=== PATIENT | female | born 1995 | race Caucasian/White ===

== ENCOUNTER 2018-06-21 10:17 | Emergency (ER) | payer OTHER ==
--- NOTE | 2018-06-21 10:23 | EDPHY ---
H & P Time Seen by Provider: 06/21/18 10:20 - Medical/Surgical History Hx Asthma: No Hx Chronic Respiratory Disease: No Hx Diabetes: No Hx Cardiac Disease: No Hx Renal Disease: No Hx Cirrhosis: No Hx Alcoholism: No Hx HIV/AIDS: No Hx Splenectomy or Spleen Trauma: No Other PMH: 2 abortions - Social History Smoking Status: Current some day smoker Constitutional: Initial Vital Signs Temperature (C) 36.6 C 06/21/18 10:20 Heart Rate 75 06/21/18 10:20 Respiratory Rate 16 06/21/18 10:20 Blood Pressure 123/89 H 06/21/18 10:20 O2 Sat (%) 96 06/21/18 10:20 O2 Delivery Mode Room Air Allergies/Adverse Reactions: No Known Allergies Allergy (Verified 06/21/18 10:20) Home Medications: Medication Instructions Recorded Hydrocodone/APAP 5/325 [[place] 1 - 2 each PO Q4-6PRN PRN #20 tab 06/21/18 5/325] Ibuprofen [Motrin] 800 mg PO Q8 #20 tab 06/21/18 Medical Decision Making - Diagnostics Imaging Results: Imaging Impressions Ankle X-Ray 06/21/18 10:24 Impression: Mild soft tissue swelling over the lateral malleolus indicating the soft tissue injury. No evidence for fracture. Imaging: I viewed and interpreted images myself ED Course/Re-evaluation: CHIEF COMPLAINT: Right ankle injury HISTORY OF PRESENT ILLNESS: The patient is a 22 y/o female complaining of right ankle pain after rolling it yesterday. Her symptoms have no improved, so she decided to present to the emergency department. No fever, headache, body aches, lightheadedness, chest pain, heart palpitations, shortness of breath, cough, abdominal pain, urinary or bowel complaints, numbness, paresthesias. REVIEW OF SYSTEMS: A 10 point review of systems was performed and is negative with the exception of the elements mentioned in the history of present illness. PHYSICAL EXAM: HR, BP, O2 Sat, RR. Temp noted General Appearance: Alert, well hydrated, appropriate, and non-toxic appearing. Head: Atraumatic without scalp tenderness or obvious injury Eyes: Pupils equal, round, reactive to light and accommodation, EOMI, no trauma , no injection. Ears: Clear bilaterally, no perforation, normal landmarks Nose: Atraumatic, no rhinorrhea, clear. Throat: There is no erythema or exudates, no lesions, normal tonsils, mucus membranes moist. Neck: Supple, 2+ carotid upstroke, nontender, no lymphadenopathy. Respiratory: No retractions, no distress, no wheezes, and no accessory muscle use. Lungs are clear to auscultation bilaterally. Cardiovascular: Regular rate and rhythm, no murmurs, rubs, or gallops. Bilateral carotid, radial, dorsalis pedis, and posterior tibial pulses intact. Good capillary refill all extremities. Gastrointestinal: Abdomen is soft, nontender, non-distended, no masses, no rebound, no guarding, no peritoneal signs. Musculoskeletal: Swelling, ecchymosis, and tenderness to the lateral aspect of her foot and at the base of her 5th metacarpal; ankle appears normal. Otherwise normal active ROM of all extremities, atraumatic. Neurological: Alert, appropriate, and interactive. The patient has normal DTRs and non-focal cranial nerves, motor, sensory, and cerebellar exam. Skin: No rashes, good turgor, no nodules on palpation. Past medical history: Denies Past surgical history: Two elective abortions Family history: Denies Social history: Student at , single, lives in [place] DIAGNOSTICS/PROCEDURES/CRITICAL CARE TIME: Right ankle and foot x-ray: No acute osseous findings. DIFFERENTIAL DIAGNOSIS: The differential diagnosis for the patient's knee injury included but was not limited to fracture, ligamentous injury, contusion, muscular strain, and meniscus injury. MEDICAL DECISION MAKING: The patient is a 22 y/o female presenting with right ankle pain after rolling it yesterday. On exam she has swelling, ecchymosis, and tenderness to the lateral aspect of her foot and at the base of her 5th metacarpal. Her ankle appears normal. Right ankle and foot x-ray ordered. 1118: Reassessed patient and discussed negative x-ray findings. Patient will be placed in a post-op shoe. I have advised her to follow up with an orthopedic surgeon and take Motrin and Vicodin for pain. Return precautions provided; patient is comfortable with this plan. Departure - Departure Disposition: Home, Routine, Self-Care Clinical Impression: Sprain of left foot Qualifiers: Encounter type: initial encounter Qualified Code(s): S93.602A - Unspecified sprain of left foot, initial encounter Condition: Good Instructions: Foot Sprain (ED) Additional Instructions: 1. Take Motrin and Vicodin as prescribed for pain. 2. Rest, ice, elevation. 3. Follow up with an orthopedic surgeon within one week. 4. Return to the emergency department for worsening pain, swelling, numbness, weakness or other concerns. Wear splint at all times until reevaluation, but okay to shower and sleep without splint. 5. You will likely need an MRI to further evaluate your injury. Referrals: Sim Blake MD [Medical Doctor] - As per Instructions Prescriptions: Hydrocodone/APAP 5/325 [[place] 5/325] 1 - 2 each PO Q4-6PRN PRN #20 tab PRN Reason: Pain, Moderate Ibuprofen [Motrin] 800 mg PO Q8 #20 tab Report Scribed for: Chema Diamond Report Scribed by: Didi Ordonez Date of Report: 06/21/18 Time of Report: 10:21
[2018-06-21 11:28] VITALS: BP 120/78
== END 2018-06-21 11:28 | disposition home or self-care (01) ==
DX: S93.602A Unspecified sprain of left foot, initial encounter (principal); X50.1XXA Overexertion from prolonged static or awkward postures, initial encounter; Y99.9 Unspecified external cause status
CPT/HCPCS: L4386